=== PATIENT | male | born 1950 | race Two or more races ===

== ENCOUNTER 2017-09-04 06:59 | Emergency (ER) | payer OTHER ==
[~2017-09-04] VITALS: Ht 165.1 cm; Wt 79.4 kg
[~2017-09-04 06:59] MED LIST: CIPROFLOXACIN750 MG PO; CLONAZEPAM1 MG PO; DOCUSATE SODIU100 MG PO; METHYLPRED4 MG/DOSE- PO; NEURONTIN PO; PERCOCET 5/3251 TAB PO; PNEU16DI2; VASOTEC10 MG PO
[2017-09-04] MEDS ORDERED: NORFLEX100MG PO (08:41)
[2017-09-04] MEDS ORDERED: KETO10TA2 PO (08:41)
== END 2017-09-04 08:54 | disposition home or self-care (01) ==
LOC: ER 06:59
DX: M54.5 Low back pain (principal)

== ENCOUNTER 2018-01-01 07:36 | Outpatient (CLI) | payer OTHER ==
[~2018-01-01 07:36] MED LIST changes: +KETO10TA2 PO; +NORFLEX100MG PO
== END 2018-01-01 07:42 | disposition home or self-care (01) ==
LOC: SONOGRAMA 07:36
DX: K75.81 Nonalcoholic steatohepatitis (NASH) (principal); K76.0 Fatty (change of) liver, not elsewhere classified

== ENCOUNTER 2018-02-13 07:05 | Outpatient (CLI) | payer OTHER | END 2018-02-13 07:08 | disposition home or self-care (01) | LOC: RAD 07:05 | DX: N20.0 Calculus of kidney (principal) ==

== ENCOUNTER 2018-11-12 07:12 | Outpatient (CLI) | payer OTHER | END 2018-11-12 07:16 | disposition home or self-care (01) | LOC: SONOGRAMA 07:12 | DX: K76.89 Other specified diseases of liver (principal) ==

== ENCOUNTER 2019-12-21 07:44 | Outpatient (CLI) | payer OTHER | END 2019-12-21 07:46 | disposition home or self-care (01) | LOC: SONOGRAMA 07:44 | PROVIDERS: ATTEND Internal Medicine Cardiovascular Disease | DX: R10.84 Generalized abdominal pain (principal) ==

== ENCOUNTER → 2020-05-02 | Outpatient (CLI) | payer OTHER | END | disposition home or self-care (01) | LOC: RAD 07:11 | PROVIDERS: ATTEND Internal Medicine Cardiovascular Disease | DX: M25.712 Osteophyte, left shoulder (principal); M12.89 Other specific arthropathies, not elsewhere classified, multiple sites ==

== ENCOUNTER 2020-06-07 07:14 | Outpatient (CLI) | payer OTHER | END 2020-06-07 07:20 | disposition home or self-care (01) | LOC: TOM 07:14 | PROVIDERS: ATTEND Internal Medicine Cardiovascular Disease | DX: M25.552 Pain in left hip (principal) ==

== ENCOUNTER 2024-02-18 07:33 | Outpatient (CLI) | payer OTHER | END 2024-02-18 07:39 | disposition home or self-care (01) | LOC: RAD 07:33 | PROVIDERS: ATTEND Internal Medicine Cardiovascular Disease | DX: M99.01 Segmental and somatic dysfunction of cervical region (principal); M54.2 Cervicalgia; M99.02 Segmental and somatic dysfunction of thoracic region; M99.03 Segmental and somatic dysfunction of lumbar region; M54.50 Low back pain, unspecified; M62.830 Muscle spasm of back ==